=== PATIENT | male | born 1955 | race Caucasian/White ===

== ENCOUNTER → 2016-08-09 | Outpatient (CLI) | payer OTHER ==
--- NOTE | 2016-08-09 12:16 | KCIC ---
PROCEDURE MRI of the lumbar spine without contrast 08/09/2016 HISTORY Low back pain which radiates down the left leg. Left foot numbness. TECHNIQUE Unenhanced T1 weighted and T2 weighted sagittal and axial and inversion recovery sagittal images of the lumbar spine were obtained. FINDINGS Mild lateral curvature of the lumbar spine is seen convex to the left. Degenerative signal changes and loss of height are seen involving the L4-5 and L5-S1 discs. Degenerative signal changes are seen within the marrow surrounding these discs. Degenerative signal changes are seen involving the L2-3 and L3-4 discs. The conus medullaris is normal in morphology, position, and signal characteristics. At the L1-2 and L2-3 disc spaces there are minimal to mild generalized disc bulges. Degenerative changes are seen involving the facet joints bilaterally. These findings do not result in significant central spinal canal or neural foraminal stenosis. At the L3-4 disc space there is a mild generalized disc bulge. Degenerative changes are seen involving the facet joints bilaterally. There is mild ligamentum flavum hypertrophy bilaterally. There is prominence of the posterior epidural fat. These findings when combined result in very mild central spinal canal stenosis. No neural foraminal stenosis is seen. At the L4-5 disc space there is a moderate generalized disc bulge. Degenerative changes are seen involving the facet joints bilaterally. There is mild to moderate ligamentum flavum hypertrophy bilaterally. There is prominence of the posterior epidural fat. These findings when combined result in mild to moderate central spinal canal stenosis. Mild to moderate bilateral neural foraminal stenosis is seen. At the L5-S1 disc space there is a moderate generalized disc bulge. This is eccentric to the left. Degenerative changes are seen involving the facet joints, left greater than right. There is mild ligamentum flavum hypertrophy bilaterally. Superimposed on the disc bulge is a focal central disc protrusion. This measures 3 millimeters in AP diameter. These findings when combined do not result in significant central spinal canal stenosis. Moderate to severe left neural foraminal stenosis is seen. The right neural foramina is patent. IMPRESSION The changes of degenerative disc disease are seen throughout the lumbar spine. These findings result in very mild central spinal canal stenosis at L3-4 and mild to moderate central spinal canal stenosis at L4-5. Mild to moderate bilateral neural foraminal stenosis is seen at L4-5. Moderate to severe left neural foraminal stenosis is seen at L5-S1. Electronically signed by: James Rubio MD (Aug 09, 2016 12:14:45)
== END | disposition home or self-care (01) ==
LOC: KCIC MRI 07:58
PROVIDERS: ATTEND Family Medicine
DX: M54.32 Sciatica, left side (principal); M48.07 Spinal stenosis, lumbosacral region
CPT/HCPCS: 72148

== ENCOUNTER → 2016-09-20 | Outpatient (CLI) | payer OTHER ==
[~2016-09-20] MED LIST: BENA1TAB6 PO; CRAN500C6 PO; GLUC1CAP48 PO; IOHEXOL 180 MG/ML 10 ML VIAL. ONE; LEVO150T5 PO; MELO-150 PO; MULT-658 PO; OMEP20CA9 PO; SAW450CA2 PO; TESTIN; mega red; methylPREDNISolone ACETATE 40 MG/ML VIAL. ONE; methylPREDNISolone ACETATE 80 MG/ML VIAL. ONE; tumeric
--- NOTE | 2016-09-20 22:49 | PAIN ---
DATE OF SERVICE: 09/20/2016 CHIEF COMPLAINT: Low back and left lower extremity pain. HISTORY OF PRESENT ILLNESS: This is a 60-year-old male who presents with history of pain for about a year, increasing in the low back, left lower extremity, never really got better with normal activities. He was doing some stretching exercises and strengthening and resting his back. No specific injury or accident that he is aware about a year ago, but the pain never got better as it has in the past when he has had some back pain. The patient reports it is now in the low back radiating to the posterior gluteus, posterior thigh, posterior knee, posterior calf into the foot involving the lateral aspect of the foot and the sole of the foot, worse with standing, walking, changing positions to say intermittent in intensity, but always present, changes during the day, worse with activity, numbness, radiating, also aching in quality and it gets worse in the evening after he is up on his feet, feels better with walking on an elliptical machine or treadmill for a short period of time after about 15 minutes, pain begins to increase in his back and leg. His leg does feel like it fatigues more easily than the right one, but has no actual motor loss or deficits in the lower extremity. The patient did have an MRI scan of the lumbar spine showing changes of degenerative disk disease throughout the lumbar spine, very mild central spinal canal stenosis at L3-L4, mild to moderate canal stenosis centrally at L4-L5 and moderate bilateral neural foraminal stenosis at L4-L5 with moderate to severe left neural foraminal stenosis at L5-S1 with a superimposed disk bulge with focal central disk protrusion at L5-S1 on the left. The patient reports disability rate from 0-10, 10 being the worst, a 2-3 with family and home responsibilities, 3-4 with recreation and social activity, 4-5 with occupation, 1 with sexual behavior and 0 with self care and 0 with life support activities. The patient has been doing exercises on his own, he has not had any form of physical therapy training. At this time, he is also taking aspirin, ibuprofen, and Meloxicam, which helps, but only to a mild extent with the pain. Again, no symptoms on the right lower extremity, no loss of motor function. PAST MEDICAL HISTORY: Significant for hypertension, hypothyroidism, arthritis, gastroesophageal reflux, hypogonadism. PREVIOUS SURGERY: Tonsillectomy and carpal tunnel repair. CURRENT MEDICATIONS: Include Meloxicam, [place], glucosamine, cranberry extract, multivitamins, levothyroxine, omeprazole and benazepril. ALLERGIES: The patient has no known drug allergies. FAMILY HISTORY: Significant for no major medical problems or conditions he is aware of. SOCIAL HISTORY: The patient does not smoke. Drinks maybe 2-3 beer beverages once a week at the most, is , lives with his spouse, lives locally in [place], [place], is a retired special police officer. REVIEW OF SYSTEMS: The patient's review of systems is positive for those items mentioned in history of present illness. All systems reviewed and otherwise negative. It is complete, full and well documented on the patient's chart. PHYSICAL EXAMINATION: VITAL SIGNS: Today, blood pressure is 163/91, pulse is 67, respirations 20, temperature is 97.8 degrees Fahrenheit, height is 5 feet 10 inches, weighs 241 pounds. GENERAL: The patient is awake, alert, oriented, appropriate, very pleasant demeanor. HEENT: Head shows normocephalic, atraumatic. Extraocular movements intact, symmetrical. Oral cavity, mucous membranes are moist and pink. Dentition is intact. NECK: Shows anterior throat supple without palpable lymphadenopathy noted. Swallow reflex is symmetrical. CHEST: Shows normal on inspection. Breath sounds clear to auscultation bilaterally. HEART: Shows S1 and S2 clear. ABDOMEN: Soft, nontender, nondistended. No palpable organomegaly. No rebound or guarding demonstrated. BACK: The patient's back shows spine grossly in the midline, normal-appearing cervical lordotic curvature, thoracic kyphotic curvature, and lumbar lordotic curvature. No previous bruises, lesions, rashes or scars are noted. Lumbar paraspinous muscle shows symmetrical inspection with palpation shows some moderate tenderness only in the low lumbar distribution bilaterally, but only diffusely without radiation, without trigger points. No tenderness over the sacrum or sacroiliac regions. The patient shows good rotation and motion of the lumbar spine, both laterally greater than 10 degrees ____ extension greater than 10 degrees, forward flexion at 45 degrees without significant pain reported. LOWER EXTREMITIES: Show deep tendon reflexes at 2+ in the patellar, 1+ tendo calcaneus tendons. Motor exam is strong with 5/5 dorsiflexion, extension, quadriceps and hamstring flexion and is symmetrical as well. Peripheral pulses are 2+ posterior tibial and dorsalis pedis pulses. No peripheral edema is noted. No clubbing, no cyanosis. Lower extremities are warm and dry to touch, equal in color and appearance. The patient has a mild positive straight leg raise at about 40-45 degrees on the left side only. There is decreased with knee flexion, right side is negative. Gaenslen's and Meet's maneuvers are negative for reproduction of pain bilaterally as well. The patient is able to stand, stand on his toes without difficulty or loss of balance, is walking with a normal appearing gait without any assistive devices such as canes or walkers to ambulate. IMPRESSION: 1. This is a 60-year-old male with approximately 1 year history of increasing low back pain radiating to left lower extremity is noted in a radicular fashion. 2. MRI scan as noted. 3. Hypertension. 4. Arthritis. PLAN: Options were discussed with the patient including conservative medical management, physical therapy, and interventional technique. He would like to pursue interventional techniques. We discussed a lumbar epidural steroid injection using description as well as anatomical models to describe the procedure. Risks were then discussed including, but not limited to bleeding, infection, possibility of epidural hematoma and subsequent neurologic compromise, dural puncture, headaches, spinal cord and/or nerve damage, side effects of steroid medication and poor results regarding pain control. The patient understands and wished to proceed. The patient will return to clinic in approximately 2 weeks for followup. He was counseled on return appointment, activity levels and side effects to be aware of. DIAGNOSES: Lumbar radiculopathy with lumbar degenerative disk disease. PROCEDURES: Lumbar epidural steroid injection, translaminar approach at the L5-S1 level using C-arm fluoroscopic guidance under sterile prep and drape using local anesthetic. MEDICATION INJECTED: 120 mg Depo-Medrol plus 10 mL of preservative-free normal saline and 2 mL of Isovue for contrast. CONDITION AT DISCHARGE: Stable. The patient tolerated procedure well, had no complications. LENA WESLEY MD DR: SENDY/sunny JOB#: [id number] / [id number] ecc KATTY YUSUF MD
== END | disposition home or self-care (01) ==
LOC: PNCL 07:39
PROVIDERS: ATTEND Anesthesiology
DX: M51.16 Intervertebral disc disorders with radiculopathy, lumbar region (principal); I10 Essential (primary) hypertension; E03.9 Hypothyroidism, unspecified; M19.90 Unspecified osteoarthritis, unspecified site; K21.9 Gastro-esophageal reflux disease without esophagitis; E23.0 Hypopituitarism; Z72.89 Other problems related to lifestyle
CPT/HCPCS: 62323; J1030; J1040

== ENCOUNTER → 2016-10-04 | Outpatient (CLI) | payer OTHER ==
--- NOTE | 2016-10-04 13:03 | PAIN ---
DATE OF SERVICE: 10/04/2016 PROGRESS NOTE FOR PAIN CLINIC DIAGNOSES: Lumbar radiculopathy with lumbar degenerative disk disease. HISTORY OF PRESENT ILLNESS: The patient is a 60-year-old male, who returns for followup status post lumbar epidural steroid injection x 1. The patient reports about 50% improvement overall in low back and left lower extremity. The patient reports still some significant pain there, but much improved, has been increasing activity with greater ease and comfort, has been performed daily activities is much better tolerability. The patient reports his pain anywhere from 0-3 on a scale of 10 is the worst. The patient reports aching and tight radiating pain in the left leg, as well as some tightness in the calf, but significantly diminished from previous. The patient reports sleeping better at night, does not awaken him from sleep. No new motor or sensory deficits or other bowel or bladder incontinence or other complaints. PHYSICAL EXAMINATION: VITAL SIGNS: The patient's blood pressure 143/78, pulse 66, respirations are 16, temperature 98.4 degrees Fahrenheit. Height is 5 feet 10 inches, weight is 241 pounds. GENERAL: The patient is awake, alert, oriented, appropriate, very pleasant demeanor. HEENT: Shows normocephalic, atraumatic. Extraocular movements are intact, symmetrical. Oral cavity, mucous membranes are moist and pink. Dentition is intact. NECK: Shows anterior throat supple without palpable lymphadenopathy noted. Swallow reflex is symmetrical. CHEST: Shows normal on inspection. Breath sounds clear to auscultation bilaterally. HEART: Shows S1 and S2 clear. ABDOMEN: Soft, nontender, nondistended. No palpable organomegaly is noted. No rebound or guarding demonstrated. BACK: Shows spine grossly midline. Lumbar paraspinous shows symmetrical on inspection with palpation shows only very mild tenderness with palpation in the low lumbar distribution bilaterally, but is symmetrical and normal muscle girth. No atrophy, hypertrophy, no radiation of pain, no tenderness over the sacrum or sacroiliac regions. EXTREMITIES: Lower extremities show deep tendon reflexes 2+ in the patellar, 1+ tendo-calcaneus tendons are equal. Motor exam is strong with 5/5 dorsiflexion, extension, quadriceps and hamstring flexion. Options were discussed with the patient. The patient's old chart was reviewed as his current medication regimen updated. Current review of systems updated today as well. We will proceed with a second lumbar epidural steroid injection today with fluoroscopic guidance. Risks were again discussed including, but not limited to bleeding, infection, possibility of epidural hematoma, subsequent neurologic compromise, dural punctures, headaches, spinal cord and/or nerve damage, side effects of steroid medication and poor results regarding pain control. The patient understands and wishes to proceed. The patient will return to clinic in approximately 2 weeks for followup, was counseled as to return appointment and activity level and side effects to be aware of. DIAGNOSIS: Lumbar radiculopathy with lumbar degenerative disk disease. PROCEDURE: Lumbar epidural steroid injection in translaminar approach at the L5-S1 level using C-arm fluoroscopic guidance under sterile prep and drape using local anesthetic. MEDICATION INJECTED: Depo-Medrol 120 mg plus 10 mL of preservative-free normal saline and 2 mL of Isovue for contrast. CONDITION AT DISCHARGE: Stable. The patient tolerated procedure well, had no complications. LENA WESLEY MD DR: SENDY/sunny JOB#: [id number] / [id number]
== END | disposition home or self-care (01) ==
LOC: PNCL 08:33
PROVIDERS: ATTEND Anesthesiology
DX: M51.16 Intervertebral disc disorders with radiculopathy, lumbar region (principal)
CPT/HCPCS: 62323; J1030; J1040

== ENCOUNTER → 2016-10-25 | Outpatient (CLI) | payer OTHER ==
[~2016-10-25] MED LIST changes: -MELO-150 PO; +MELO15TA23 PO
--- NOTE | 2016-10-25 11:43 | PAIN ---
DATE OF SERVICE: 10/25/2016 PROGRESS NOTE FOR PAIN CLINIC DIAGNOSES: Lumbar radiculopathy with lumbar degenerative disk disease. HISTORY OF PRESENT ILLNESS: The patient is a 60-year-old male who returns for followup status post lumbar epidural steroid injections x 2. The patient reports about 90% or better improvement with the pain in his low back and left leg. The patient reports he has been very pleased. He has been increasing his activity with greater ease and comfort. The patient's pain is a 3 on a scale of 10 at its worst, worse with standing, walking, sleeping well at night and increasing activity with greater ease and comfort, reports he is sleeping well. Has no new motor or sensory deficits, no new complaints. He is very pleased with his progress. The patient reports no new changes. No new deficits or other complaints. PHYSICAL EXAMINATION: VITAL SIGNS: The patient's blood pressure is 155/86, pulse 67, respirations 18, temperature 98.2 degrees Fahrenheit, height is 5 feet 9 inches, is 237 pounds. GENERAL: The patient is awake, alert, oriented, appropriate, very pleasant demeanor. HEENT: Head shows normocephalic, atraumatic. Extraocular movements are intact and symmetrical. Oral cavity shows mucous membranes moist and pink. Dentition is intact. NECK: Shows anterior throat supple. CHEST: Shows breath sounds clear to auscultation bilaterally. HEART: Shows S1 and S2 clear. ABDOMEN: Soft, nontender, nondistended. No palpable organomegaly is noted. No rebound or guarding demonstrated. BACK: Shows spine grossly in the midline. Lumbar paraspinous muscle shows some mild tenderness to palpation, but without atrophy, hypertrophy and without asymmetry. EXTREMITIES: The patient's lower extremities showed deep tendon reflexes at 2+ in the patellar, 1+ tendo calcaneus tendons. Motor exam is strong with 5/5 dorsiflexion, extension, quadriceps and hamstring flexion and is symmetrical as well. Options were discussed with the patient. The patient's old chart was reviewed as his current medication regimen updated. Current review of systems updated today as well and we will proceed with a third in the series of lumbar epidural steroid injection using the C-arm fluoroscopic guidance. Risks were again discussed including, but not limited to, bleeding, infection, possibility of epidural hematoma and subsequent neurologic compromise, dural puncture, headaches, spinal cord and/or nerve damage, side effects of steroid medications and poor results regarding pain control. The patient understands and wishes to proceed. The patient will return to clinic in approximately 2 weeks for followup, was counseled on return appointment, activity level and side effects to be aware of. DIAGNOSES: Lumbar radiculopathy with lumbar degenerative disk disease. PROCEDURE: Lumbar epidural steroid injection in translaminar approach at L5-S1 level using C-arm fluoroscopic guidance under sterile prep and drape using local anesthetic. MEDICATIONS INJECTED: Depo-Medrol 120 mg plus 10 mL of preservative-free normal saline and 2 mL of Isovue for contrast. CONDITION AT DISCHARGE: Stable. The patient tolerated procedure well, had no complications. LENA WESLEY MD DR: SENDY/sunny JOB#: [id number] / [id number]
== END | disposition home or self-care (01) ==
LOC: PNCL 07:45
PROVIDERS: ATTEND Anesthesiology
DX: M51.16 Intervertebral disc disorders with radiculopathy, lumbar region (principal)
CPT/HCPCS: 62323; J1030; J1040

== ENCOUNTER → 2017-03-27 | Outpatient (CLI) | payer OTHER ==
[~2017-03-27] MED LIST changes: -IOHEXOL 180 MG/ML 10 ML VIAL. ONE; -methylPREDNISolone ACETATE 40 MG/ML VIAL. ONE; -methylPREDNISolone ACETATE 80 MG/ML VIAL. ONE
--- NOTE | 2017-03-27 20:35 | PAIN ---
DATE OF SERVICE: 03/27/2017 PROGRESS NOTE FOR PAIN CLINIC DIAGNOSES: Lumbar radiculopathy with lumbar degenerative disk disease. HISTORY OF PRESENT ILLNESS: The patient is a 61-year-old male who returns for followup status post lumbar epidural steroid injections, last seen in October of this year. The patient did very well after his third injection with about 90% improvement initially, weaning down to about 50% improvement overall and is still improved by about 50% to this day. The patient reports pain has been returning though, increasing in his low back and left lower extremity, mostly in the posterior gluteus, posterior thigh, posterior calf, lateral calf on the left side only. The patient reports it is worse with standing, walking and changing positions; better with lying down or sitting down; sleeps well at night, does not awaken him from sleep. The patient reports it is worse with sitting for more than about an hour or riding the car for prolonged periods but much worse with standing and walking. When he sits down, the pain is actually better initially but then once he gets back up, it starts all over. The patient reports no radiation to the right lower extremity. The patient reports the pain is aching and tight, throbbing and shooting and at times rates at 8 on a scale of 10 at its worst, 5 on average and 2 at its least and is 2 today. The patient reports no new motor or sensory deficits and no new bowel or bladder incontinence or other complaints. PHYSICAL EXAMINATION: VITAL SIGNS: Today, the patient's blood pressure 161/79, pulse 79, respirations are 18, temperature 97.8 degrees Fahrenheit, height is 5 feet 10 inches and weight is 246 pounds. GENERAL: The patient is awake, alert, oriented, appropriate and very pleasant demeanor. HEENT: Shows normocephalic and atraumatic. Extraocular movements are intact and symmetrical. Oral cavity: Mucous membranes moist and pink. Dentition is intact. NECK: Shows anterior throat supple without palpable lymphadenopathy noted. Swallow reflex is symmetrical. CHEST: Shows normal on inspection. Breath sounds clear to auscultation bilaterally. HEART: Shows S1 and S2 clear. No murmurs auscultated. ABDOMEN: Obese, soft, nontender and nondistended. No palpable organomegaly is noted. BACK: Shows spine grossly in the midline. Normal appearing thoracic kyphosis and lumbar lordotic curvature. No previous bruises, lesions, rashes or scars are noted. Lumbar paraspinous musculature is symmetrical on inspection with palpation shows some [id number] tenderness in the low lumbar distribution only, but only diffusely without radiation. The patient shows no tenderness over the sacrum or sacroiliac regions over the spinous processes sows good rotational motion both laterally as well as extension and flexion without exacerbation of pain. LOWER EXTREMITIES: Show deep tendon reflexes 2+ in the patellar, 1+ tendo-calcaneus tendons, are equal. Motor exam is strong with 5/5 dorsiflexion, extension, quadriceps and hamstring flexion. Peripheral pulses are 1+ posterior tibial and dorsalis pedis pulses. No peripheral edema is noted. The patient shows mildly positive straight leg raise on the left side only at about 40 degrees and it is decreased with knee flexion and right side is negative. Gaenslen's and Meet's maneuvers are negative bilaterally. Options were discussed with the patient and the patient's old chart was reviewed as well as his current medication regimen updated. Current review of systems updated today as well. We will preauthorize the patient for lumbar epidural steroid injections. He has done very well with these in the past with increasing radicular pain in the left lower extremity and L5-S1 dermatomal distribution with MRI scan showing diffuse disk bulge, eccentric to the left at the L5-S1 level with a focal central disk protrusion at that level. The patient will continue to exercise and do stretching and strengthening as he has been doing as well as walking daily. We will wait for preauthorization and have him return for lumbar epidural steroid injection at that time. LENA WESLEY MD DR: SENDY/sunny JOB#: [id number] / [id number]
== END | disposition home or self-care (01) ==
LOC: PNCL 07:37
PROVIDERS: ATTEND Anesthesiology
DX: M51.16 Intervertebral disc disorders with radiculopathy, lumbar region (principal); M79.605 Pain in left leg
CPT/HCPCS: 99212

== ENCOUNTER → 2017-04-16 | Outpatient (CLI) | payer OTHER ==
[~2017-04-16] MED LIST changes: +IOHEXOL 180 MG/ML 10 ML VIAL. ONE; +methylPREDNISolone ACETATE 40 MG/ML VIAL. ONE; +methylPREDNISolone ACETATE 80 MG/ML VIAL. ONE
--- NOTE | 2017-04-16 18:19 | PAIN ---
DATE OF SERVICE: 04/16/2017 DIAGNOSES: Lumbar radiculopathy with lumbar degenerative disk disease. HISTORY OF PRESENT ILLNESS: The patient is a 61-year-old male who returns for followup status post evaluation and preauthorization for lumbar epidural steroid injections. The patient has achieved this now, still significant pain in low back, left lower extremity radiating to posterior hip, posterior thigh, gluteus, into the posterior calf and the lateral calf on the left side only. The patient reports it is a 6-7 on a scale of 10 at its worse, 5-6 on average and 2 at its least, is a 5 today. The patient reports it is aching, tight, radiating, sharp, shooting pain, can be cramping; worse with standing, walking, change in positions; better with sitting or lying down. The patient reports it does not awaken from sleep. He feels much better lying down, sleeps about 8 hours a night without difficulty. The patient reports no new motor or sensory deficits, no new bowel or bladder incontinence or other complaints. PHYSICAL EXAMINATION: VITAL SIGNS: Today, the patient's blood pressure 144/83, pulse 56, respirations 18, temperature 97.8 degrees Fahrenheit. Height is 5 feet 10 inches, weighs 243 pounds. GENERAL: The patient is awake, alert, oriented, appropriate, very pleasant demeanor. HEENT: Head shows normocephalic, atraumatic. Extraocular movements are intact, symmetrical. Oral cavity: Mucous membranes moist and pink. Dentition is intact. NECK: Shows anterior throat supple without palpable lymphadenopathy noted. Swallow reflex is symmetrical. CHEST: Shows normal on inspection. Breath sounds clear to auscultation bilaterally. HEART: Shows S1, S2 clear. ABDOMEN: Soft, nontender, nondistended. No palpable organomegaly is noted. No rebound or guarding demonstrated. BACK: Shows spine grossly in midline. Lumbar paraspinous musculature shows symmetrical on inspection on palpation shows some moderate tenderness in the paraspinous musculature bilaterally, but only diffusely in the low lumbar distribution without radiation, without trigger points. Neck shows full rotational motion of lumbar spine, both laterally greater than 10 degrees right and left well as extension greater than 10 degrees, forward flexion 45 degrees without difficulty or pain reported. EXTREMITIES: Lower extremities show deep tendon reflexes 2+ in the patellar, 1+ tendo calcaneus tendons. Motor exam is strong with 5/5 dorsiflexion, extension, quadriceps and hamstring flexion and equal bilaterally. Peripheral pulses are 1+ posterior tibial. No peripheral edema is noted. No clubbing, no cyanosis. Options were discussed with the patient. The patient's old chart was reviewed as his current regimen and updated. Current review of systems is updated today as well. We will proceed with a lumbar epidural steroid injection today with fluoroscopic guidance. Risks were again discussed including, but not limited to bleeding, infection, possibility of epidural hematoma, subsequent neurologic compromise, dural puncture. headaches, spinal cord and/or nerve damage, side effects of steroid medication and poor results regarding pain control. The patient understands and wished to proceed. The patient will return to clinic in approximately 2 weeks for followup, was counseled on return appointment, activity level and side effects to be aware of. DIAGNOSES: Lumbar radiculopathy with lumbar degenerative disk disease. PROCEDURES: Lumbar epidural steroid injection, translaminar approach L5-S1 level using C-arm fluoroscopic guidance under sterile prep and drape using local anesthetic. MEDICATION INJECTED: A total of 120 mg Depo-Medrol plus 10 mL preservative-free normal saline and 2 mL of Isovue for contrast. CONDITION AT DISCHARGE: Stable. The patient tolerated procedure well, had no complications. LENA WESLEY MD DR: SENDY/sunny JOB#: [id number] / [id number]
== END ==
LOC: PNCL 08:35
PROVIDERS: ATTEND Anesthesiology
DX: M51.16 Intervertebral disc disorders with radiculopathy, lumbar region (principal)
CPT/HCPCS: 62323; J1030; J1040

== ENCOUNTER → 2017-04-30 | Outpatient (CLI) | payer OTHER ==
[~2017-04-30] MED LIST changes: -SAW450CA2 PO; +SAW450CA7 PO
--- NOTE | 2017-04-30 11:23 | PAIN ---
DATE OF SERVICE: 04/30/2017 PROGRESS NOTE FOR PAIN CLINIC DIAGNOSES: Lumbar radiculopathy with lumbar degenerative disk disease. HISTORY OF PRESENT ILLNESS: The patient is a 61-year-old male who returns for followup status post lumbar epidural steroid injection x 1. The patient reports about 95% improvement in his low back and left lower extremity pain. The patient reports still some pain in the low back radiating to posterior gluteus and posterior thigh into the calf but much improved as what it was. He has been increasing activity with greater ease and comfort and sleeping better at night and was then becoming much more active with much less pain. The patient reports the pain level is still there but is a 2-3 at its worst, 1 on average and 0 at least and is 1 today. The patient reports it is radiating, aching and dull but only off and on, not constant as it was previously. The patient is very pleased with his progress thus far, reports no new motor or sensory deficits and no new bowel or bladder incontinence or other complaints. PHYSICAL EXAMINATION: VITAL SIGNS: Today, the patient's blood pressure 140/91, pulse 60, respirations 18, temperature is 97.8 degrees Fahrenheit, height is 5 feet 10 inches and weight is 238 pounds. GENERAL: The patient is awake, alert, oriented, appropriate and very pleasant demeanor. HEENT: Head shows normocephalic and atraumatic. Extraocular muscles are intact and symmetrical. Oral cavity: Mucous membranes moist and pink. Dentition is intact. NECK: Shows anterior throat supple without palpable lymphadenopathy noted. Swallow reflex symmetrical. CHEST: Shows normal with inspection. Breath sounds are clear to auscultation bilaterally. HEART: Shows S1 and S2 clear. No murmurs auscultated. ABDOMEN: Soft, nontender and nondistended. No palpable organomegaly noted. No rebound or guarding demonstrated. BACK: Shows spine grossly in the midline. Lumbar paraspinous musculature shows moderate tenderness with palpation but only diffusely in the lumbar distribution. Lumbar paraspinous musculature is symmetrical on inspection. No previous bruises, lesions, rashes or scars are noted. The patient's back shows good rotational motion both laterally greater than 10 degrees right and left as well as extension greater than 10 degrees, forward flexion at 45 degrees without difficulty. EXTREMITIES: Lower extremities show deep tendon reflexes at 2+ at the patellar and 1+ tendo-calcaneus tendons. Motor exam is strong with 5/5 dorsiflexion, extension, quadriceps and hamstring flexion. Peripheral pulses are 1+ posterior tibial. No peripheral edema is noted. Options were discussed with the patient, the patient's old chart was reviewed as well as his current medication regimen updated. Current review of systems updated today as well and we will proceed with lumbar epidural steroid injections, the second in this series with fluoroscopic guidance. Risks were again discussed including, but not limited to bleeding, infection, possibility of epidural hematoma and subsequent neurological compromise, dural puncture, headaches, spinal cord and/or nerve damage, side effects of steroid medication and poor results regarding pain control. The patient understands and wished to proceed. The patient to return to clinic in approximately 2 weeks for followup. He was counseled to return appointment, activity level and side effects to be aware of. DIAGNOSIS: Lumbar radiculopathy with lumbar degenerative disk disease. PROCEDURE: Lumbar epidural steroid injection, translaminar approach, L5-S1 level using C-arm fluoroscopic guidance under sterile prep and drape using local anesthetic. MEDICATION INJECTED: A total of 120 mg Depo-Medrol plus 10 mL of preservative-free normal saline and 2 mL of Isovue for contrast. CONDITION AT DISCHARGE: Stable. The patient tolerated the procedure well, had no complications. LENA WESLEY MD DR: SENDY/sunny JOB#: [id number] / [id number]
== END | disposition home or self-care (01) ==
LOC: PNCL 08:24
PROVIDERS: ATTEND Anesthesiology
DX: M51.16 Intervertebral disc disorders with radiculopathy, lumbar region (principal)
CPT/HCPCS: 62323; J1030; J1040

== ENCOUNTER → 2017-07-03 | Outpatient (CLI) | payer OTHER ==
[~2017-07-03] MED LIST changes: -BENA1TAB6 PO; -CRAN500C6 PO; -GLUC1CAP48 PO; +IOHEXOL 180 MG/ML 10 ML VIAL.; -IOHEXOL 180 MG/ML 10 ML VIAL. ONE; -LEVO150T5 PO; -MELO15TA23 PO; -MULT-658 PO; -OMEP20CA9 PO; -SAW450CA7 PO; -TESTIN; -mega red; +methylPREDNISolone ACETATE 40 MG/ML VIAL.; -methylPREDNISolone ACETATE 40 MG/ML VIAL. ONE; +methylPREDNISolone ACETATE 80 MG/ML VIAL.; -methylPREDNISolone ACETATE 80 MG/ML VIAL. ONE; -tumeric
== END | disposition home or self-care (01) ==
LOC: PNCL 07:29
DX: M51.16 Intervertebral disc disorders with radiculopathy, lumbar region (principal)
CPT/HCPCS: 62323; J1030; J1040; Q9965

== ENCOUNTER → 2017-07-31 | Outpatient (CLI) | payer OTHER | LOC: PNCL 07:43 | DX: M51.16 Intervertebral disc disorders with radiculopathy, lumbar region (principal); Z79.899 Other long term (current) drug therapy | CPT/HCPCS: 99212 ==

== ENCOUNTER → 2017-08-14 | Outpatient (CLI) | payer OTHER | END | disposition home or self-care (01) | LOC: PNCL 07:29 | DX: M51.16 Intervertebral disc disorders with radiculopathy, lumbar region (principal) | CPT/HCPCS: 62323; J1030; J1040; Q9965 ==

== ENCOUNTER → 2017-08-28 | Outpatient (CLI) | payer OTHER | END | disposition home or self-care (01) | LOC: PNCL 07:58 | DX: M51.16 Intervertebral disc disorders with radiculopathy, lumbar region (principal) | CPT/HCPCS: 99212 ==

== ENCOUNTER → 2017-09-11 | Outpatient (CLI) | payer OTHER | END | disposition home or self-care (01) | LOC: PNCL 08:01 | DX: M51.16 Intervertebral disc disorders with radiculopathy, lumbar region (principal) | CPT/HCPCS: 62323; J1030; J1040; Q9965 ==

== ENCOUNTER → 2017-11-06 | Outpatient (CLI) | payer OTHER | END | disposition home or self-care (01) | LOC: KCIC MRI 09:07 | DX: M51.37 Other intervertebral disc degeneration, lumbosacral region (principal); M48.07 Spinal stenosis, lumbosacral region; M25.78 Osteophyte, vertebrae; I10 Essential (primary) hypertension; E03.9 Hypothyroidism, unspecified | CPT/HCPCS: 72148 ==

== ENCOUNTER → 2017-12-30 | Outpatient (CLI) | payer OTHER ==
[~2017-12-30] MED LIST changes: +BENA1TAB6 PO; +CRAN500C6 PO; +GLUC1CAP48 PO; +HYDR12.53 PO; -IOHEXOL 180 MG/ML 10 ML VIAL.; +LEVO150T5 PO; +MELO15TA23 PO; +MULT-658 PO; +OMEP20CA9 PO; +SAW450CA7 PO; +TESTIN; +mega red; -methylPREDNISolone ACETATE 40 MG/ML VIAL.; -methylPREDNISolone ACETATE 80 MG/ML VIAL.; +tumeric
--- NOTE | 2017-12-31 06:40 | PDOC2 ---
Sleep Study Interpretation Patient Demographics: Date of Study: Dec 30, 2017 Primary Physician: KATTY YUSUF Referring Physician: Abhay OCHOA Type of Study: Split Night ESS: 12 BMI: 36 Sleep Study Procedure: This sleep study included recording and monitoring of EEG/EOG/EMG/EKG, respiratory effort and flow, snoring, pulse oximetry and position. Video recordings were obtained as needed. A qualified chief ultrasound technologist continuously monitored the patient throughout the night. Data was digitally stores and tabulated. Sleep staging and respiratory events were scored manually using AASM standards. Patient History: Pre-Study Sleep Assessment: Sleep Paralysis, Snoring, Observed Apnea Sleep Architecture Summary: Time In Bed Minutes: 432 TST Minutes: 377 Sleep Efficiency %: 87 Sleep Latency: Sleep Latency Minutes: 4 Distribution: N1 Min: 42 N1 %: 11 N2 Min: 271 N2 %: 72 N3 Min: 0 N3 %: 0 Stage REM Minutes: 64 Stage REM %: 17 REM Latency Minutes: 258 Baseline Respiratory Indexes: Respiratory Indexes: Diagnostic Overall AHI Hr: 44 Mins Supine: 114 Supine AHI Hr: 56 Mins Lateral: 32 AHI Lateral: 0 REM AHI Hr: 0 #OA: 0 # Hypopnea: 104 # MA: 2 # CA: 0 Baseline Oxygenation Summary: Oxygenation: Diagnostic Average Oxygen Saturation: 92 Min Oxygen Saturation: 86 Percent Below 88%: 9 Therapeutic PAP Resp Indexes: AHI: 1 Mins Supine: 66 AHI Supine: 0 Mins Lateral: 59 AHI Lateral: 1 AHI in REM: 2 #OA: 0 #Hypopnea: 0 #MA: 0 #CA: 1 Therapeutic PAP O2 Sat Indexes Minimum O2 Saturation/%: 93 Periodic Limb Movements: PLM INDEX =: 20 PLM INDEX with arousals =: 1 EKG: EKG: NSR Mean Heart Rate/Minute: 59 Treatment Information: CPAP was started at [5] cm H20 and increased gradually to []11 cm H20 per protocol. Supine sleep recorded at final pressure REM sleep recorded at final pressure There was an improvement in respiratory events with positive pressure treatment but an optimum pressure was not achieved on this study. AHI on optimum pressure was [1] hr Interface used [Respironics Medium Dreamwear nasal pillows] Episodes of desaturation were controlled with PAP therapy Impression: Sleep study is consistent with a SEVERE sleep apnea. Mild PLMS seen. Nocturnal hypoxia due to RICHARD, resolved with CPAP. Recommendations: CPAP at 11 centimeters H2O should be used on a nightly basis Patient should be followed up in 4-6 weeks to assess compliance with positive pressure therapy with review of smart card data to assess for clinical improvement. Weight loss is strongly advised. Cautioned regarding driving and operating dangerous machinery until symptoms of sleep apnea have resolved with above recommendations. Avoid BATCH WEIGHER depressants. PLMS does not need to be treated unless patient has symptoms of restless legs during the day. * I have reviewed the polysomnographic senior database administrator on this patient and agreed with the information entered. JAI MACK Dec 31, 2017 06:40 GURDEEP OCHOA MD Dec 31, 2017 14:24
== END | disposition home or self-care (01) ==
LOC: SLPLAB 18:31
PROVIDERS: ATTEND Internal Medicine Critical Care Medicine
DX: G47.33 Obstructive sleep apnea (adult) (pediatric) (principal); I10 Essential (primary) hypertension; E03.9 Hypothyroidism, unspecified
CPT/HCPCS: 95810

== ENCOUNTER → 2018-03-03 | Outpatient (CLI) | payer OTHER ==
[~2018-03-03] MED LIST changes: +ALLO300T PO; +AMLO2.5T3 PO; +BENA40TA3 PO; +COLC0.6T34 PO; +DOCU-109 PO; +HYDR-971 PO; +METH-38 PO; +OMEP20TA8 PO
[2018-03-03 16:08] LABS: BASO # 0.1 x10^3/uL (0.0-0.2); BASO % 1 % (0-3); EOS # 0.2 x10^3/uL (0.0-0.7); EOS % 3 % (0-3); HEMATOCRIT 52.4 % (39.0-53.0); HEMOGLOBIN 18.1 g/dL (13.0-17.5); LYMPH # 1.8 x10^3/uL (1.0-4.8); LYMPH % 22 % (24-48); MEAN CORPUSCULAR HEMOGLOBIN 32 pg (25-35); MEAN CORPUSCULAR HGB CONC 35 g/dL (31-37); MEAN CORPUSCULAR VOLUME 93 fL (79-100); MONO % 12 % (0-9); NEUT % 62 % (31-73); PLATELET COUNT 256 x10^3/uL (140-400); RED BLOOD COUNT 5.61 x10^6/uL (4.30-5.70); RED CELL DISTRIBUTION WIDTH 13.5 % (11.5-14.5); WHITE BLOOD COUNT 8.1 x10^3/uL (4.0-11.0)
--- NOTE | 2018-03-03 16:14 | EKG ---
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
[2018-03-03 16:41] LABS: ALBUMIN 4.4 g/dL (3.4-5.0); ALBUMIN/GLOBULIN RATIO 1.2 (1.0-1.7); CALCIUM 10.2 mg/dL (8.5-10.1); CREATININE 1.2 mg/dL (0.7-1.3); GFR 61.6; POTASSIUM 3.9 mmol/L (3.5-5.1); TOTAL BILIRUBIN 0.5 mg/dL (0.2-1.0); TOTAL PROTEIN 8.1 g/dL (6.4-8.2)
== END | disposition home or self-care (01) ==
LOC: SURGPAT 13:49
PROVIDERS: ATTEND Neurological Surgery
DX: Z01.818 Encounter for other preprocedural examination (principal); M48.062 Spinal stenosis, lumbar region with neurogenic claudication; M51.16 Intervertebral disc disorders with radiculopathy, lumbar region
CPT/HCPCS: 36415; 80053; 85025; 87641; 93005

== ENCOUNTER → 2018-03-17 | Day surgery (SDC) | payer OTHER ==
--- NOTE | 2018-03-14 15:19 | PREOP HP ---
DATE OF SERVICE: 03/17/2018 HISTORY OF PRESENT ILLNESS: The patient is a pleasant 62-year-old who is having difficulty with low back pain and pain, which radiates into his left posterior thigh and leg. He notices that his leg and foot can feel numb and weak intermittently. The problem started about 2 years ago spontaneously. He currently rates his pain as a 2/10. If he increases his activities, the pain increases significantly. He takes meloxicam to help with pain control. He had epidural steroid injections about 4 times, which he said were helpful at first, but no longer helping with his pain. PAST MEDICAL HISTORY: Gout, headaches, hypertension and tonsillitis. PAST SURGICAL HISTORY: Tonsillectomy in 1967, bilateral carpal tunnel release in 1999. FAMILY HISTORY: Diabetes and hypertension. SOCIAL HISTORY: Retired. . Exercises daily. Denies substance abuse. Denies current tobacco use. Drinks alcohol 1-2 times per week. Drinks coffee 3-4 cups per day. ALLERGIES: No known drug allergies. CURRENT MEDICATIONS: Benazepril, amlodipine, hydrochlorothiazide, levothyroxine, colchicine, allopurinol, meloxicam, omeprazole, Centrum Silver and omega 3. REVIEW OF SYSTEMS: A 12-point review of systems was obtained and is noncontributory except for that mentioned above. PHYSICAL EXAMINATION: NEUROSURGERY EXAMINATION: GENERAL APPEARANCE: Alert, pleasant, no acute distress. HEAD: Normocephalic and atraumatic. SKIN: Warm and dry. MUSCULOSKELETAL: Lumbar paraspinal muscle bulk is normal, restricted range of motion of the lumbar spine, [id number] tenderness of lower lumbar spine with palpation, normal range of motion of the lower extremities bilaterally. EXTREMITIES: No clubbing, cyanosis or edema. NEUROLOGIC: Alert and oriented x 3, normal recent and remote memory, strength 5/5 in bilateral lower extremities, sensory is intact to light touch in bilateral lower extremities, reflexes were trace and symmetric in the lower extremities bilaterally, positive straight leg raising on the left, negative straight leg raising on the right, normal gait. IMAGING: I reviewed a lumbar MRI scan. On that study, there was disc bulging at L4-L5 along with lateral recess stenosis and epidural lipomatosis. At L5-S1 on the left, there is very severe narrowing of left L5-S1 neural foramen with contact of the exiting left L5 root. ASSESSMENT/PLAN: The patient has lateral recess stenosis and epidural lipomatosis with nerve root compression at L4-L5 as well as foraminal narrowing on the left at L5-S1. I believe that the left L5 root is being compressed in these locations. My recommendation is for the patient to consider lumbar microsurgery. I spoke about the surgery and the risks. He would like to proceed. We will make the arrangements. EKATERINA BARKLEY MD DR: SWATI/sunny JOB#: [id number] / [id number] ANNELIESE
[~2018-03-17] VITALS: Ht 177.8 cm; Wt 108.9 kg
[~2018-03-17] MED LIST changes: +BACITRACIN 50,000 UNIT in IV NORMAL SALINE 1000ML BAG 1,000 ML IRR ONE; +BUPIVAC MPF-EPI 0.5%-1:200000 30 ML VIAL. ONE; +DEXAMETHASONE SOD PHOS 20 MG/5 ML VIAL. ONE; +GELATIN SPONGE SIZE 100. ONE; +GLYCOPYRROLATE 1 MG/5 ML VIAL. ONE; +HYDROcodone/APAP 5/325MG 1 TAB TABLET ONE; +HYDROcodone/APAP 5/325MG 1 TAB TABLET PO ONE; +HYDROmorphone 2 MG/ML VIAL IV PRN; +ISOFLURANE > 120 MINUTES. IH ONE; +IV RINGERS,LACTATED 1000ML 1,000 ML IV SCH; +KETOROLAC 30 MG/ML INJ FOR OR. INJ ONE; +KETOROLAC 60 MG/2 ML INJ FOR OR. ONE; +LIDOCAINE 1% PF 2 ML VIAL. ID PRN; +MIDAZOLAM HCL/PF 2 MG/2 ML VIAL. ONE; +MORPHINE SULFATE 2 MG/ML VIAL. IV PRN; +ONDANSETRON PF 4 MG/2 ML VIAL. IV PRN; +ONDANSETRON PF 4 MG/2 ML VIAL. ONE; +PHENYLEPHRINE 10 MG/ML VIAL. ONE; +PROCHLORPERAZINE 10 MG/2 ML VIAL. IV PRN; +PROPOFOL 20 ML IV ONE; +PROPOFOL 50 ML IV ONE; +REMIFENTANIL 1 MG VIAL. IV ONE; +REMIFENTANIL 2 MG VIAL. IV ONE; +ROCURONIUM 50 MG/5 ML VIAL. ONE; +THROMBIN TOPICAL 20,000 UNIT SPRAY.SYRN KIT TP ONE; +ePHEDrine PF IN SALINE 50 MG/5 ML DISP.SYRIN IV ONE; +fentaNYL PF VIAL 100 MCG/2 ML VIAL IV PRN; +fentaNYL PF VIAL 100 MCG/2 ML VIAL ONE
--- NOTE | 2018-03-17 16:23 | DISCH ---
DISCHARGE INSTRUCTIONS Condition on Discharge Condition on Discharge: Stable Activity After Discharge Activity Instructions for Disc: Activity as tolerated, Avoid exertion Other activity instructions: no driving for a week Bathing Instructions: Shower-keep dressing dry Lifting Instructions after Dis: No heavy lifting, No pulling or pushing Diet after Discharge Additional Diet Restrictions: resume home deit Wound Incision Care Wound/Incision Care: Ice to area for comfort Other wound/incision instructi: may remove dressing in 48 hours if dry then may shower, no soaking Contacting the DRTl after DC Call your doctor for: Concerns you may have Follow-Up Follow up with: Follow up with Dr. Barkley's nurse in 2 weeks [phone] EKATERINA BARKLEY MD Mar 17, 2018 16:22
[2018-03-17 17:02] VITALS: BP 147/67
--- NOTE | 2018-03-19 16:07 | PATHOLOGY ---
[facility] Accession Number: [id number] . 01 Material submitted: . LUMBAR DECOMPRESSION AND DISC . 01 Clinician provided ICD-10: M48.062 . 01 Clinical history: . Lumbar stenosis and neurogenic claudication, herniated disc and radiculopathy . 02 Diagnosis: Segments of fibrocartilaginous, fibroadipose, and skeletal muscle tissue and small segments of bone, lumbar decompression and disc: - Degenerative changes of fibrocartilaginous tissue. (JPM:alondra; 03/19/2018) QMS/03/19/2018 . 02 Comment: There is no evidence of an acute inflammatory process or malignancy. . 02 Electronically signed: . Nate Soto MD, Pathologist NPI- [id number] . 01 Gross description: . Received in formalin labeled "Aquilino Feng, lumbar decompression and disc," are several pieces of glistening, fibrous tissue measuring 4.6 x 2.9 x 1.4 cm in aggregate dimensions, containing small fragments of possible bone. The tissue is submitted representatively in cassette A1, following decalcification. (TSD; 03/18/2018) TOB/TOB . 02 Pathologist provided ICD-10: M51.36 . 02 CPT . 272771, 203898 Specimen Comment: A courtesy copy of this report has been sent to Specimen Comment: [phone], . Specimen Comment: Report sent to / DR YUSUF Performed at: 01 [facility] [address], [place], [place] [id number] MD Nikolay Nicolas MD Phone: [phone] Performed at: 02 [facility] [address] [place], [place] [id number] MD Nate Soto MD Phone: [phone]
--- NOTE | 2018-03-25 21:45 | OP ---
DATE OF SURGERY: 03/17/2018 PREOPERATIVE DIAGNOSES: 1. Bulging lumbar disc L4-L5 left with lateral recess stenosis and epidural lipomatosis at that level. 2. Left foraminal narrowing L5-S1 with foraminal L5 nerve root compression. OPERATION PERFORMED: 1. Hemilaminotomy with decompression of dura and nerve root, left L4-L5 with removal of epidural lipomatosis and decompression of dura sac and the traversing L5 root. 2. Hemilaminotomy L5-S1 left with a medial transforaminal exposure and decompression of the left L5 root in the foramen. The operation was done with EMG monitoring, SSEP monitoring, fluoroscopy, microscopic dissection. SURGEON: Ketan Barkley M.D. ORGANIZATIONAL CONSULTANT: ALLIE Banuelos assisted with the surgery. She assisted with the microdecompression as well as the closure. OPERATIVE INDICATIONS: The patient is a pleasant 62-year-old man who developed intractable back and left leg pain, which failed to improve with epidural steroid injections. On imaging studies, he had above-mentioned findings and I recommended microsurgical decompression at this level. I spoke with him about the surgery, the risks, technique and expected postoperative course and he wished to go ahead. DESCRIPTION OF PROCEDURE: Following general endotracheal anesthesia, the patient was positioned prone on the Fernando table. Lumbar region was prepped and draped in standard fashion. ALLISON hose and A-V impulse boots were applied for DVT prophylaxis. The microscope was draped, fluoroscope was draped and brought into the field. Monitoring was established. Ancef 2 grams was given less than 1 hour prior to initiation of the surgery. Using fluoroscopic guidance, a midline incision was made extending from L4-S1. I dissected down through the subcutaneous tissue and reflected the paraspinal muscles and placed a Alto microdisc retractor. I directed my attention to L4-L5 on the left and using the high speed air drill, I burred down a generous hemilaminotomy. I then trimmed away thickened ligamentum flavum from medial to lateral and performed a very generous foraminotomy. The disc was bulging, but calcified and firm and no discectomy was warranted and I fully decompressed the entire region. I then moved down to L5-S1 and again performed a hemilaminotomy, trimmed away the thickened ligamentum flavum performing a partial foraminotomy and then I worked laterally and superiorly first to visualize the inferior aspect of the L5 root and then followed this around laterally into the foramen. There was hypertrophic bone and disc bulging, which were associated with compression of the root. I trimmed the thickened facet and opened up the foramen and as I worked, the L5 root moved inferiorly and became quite free. I irrigated copiously. There was some residual epidural lipomatosis material which I did remove as well and fully decompressed the entire region. I obtained adequate hemostasis with bipolar cautery and bone wax and then I irrigated copiously. I then closed the wound in layers with absorbable suture. The skin was closed with 4-0 subcuticular stitch. The operation went very well and the patient was taken in excellent condition to recovery room. I was quite pleased with the surgery. KETAN BARKLEY MD DR: SWATI/sunny JOB#: [id number] / [id number] ANNELIESE
== END | disposition home or self-care (01) ==
LOC: SURG 08:39
PROVIDERS: ATTEND Neurological Surgery
DX: M51.16 Intervertebral disc disorders with radiculopathy, lumbar region (principal); M48.061 Spinal stenosis, lumbar region without neurogenic claudication; M10.9 Gout, unspecified; I10 Essential (primary) hypertension; R51 Headache; J03.90 Acute tonsillitis, unspecified; Z98.890 Other specified postprocedural states; Z82.49 Family history of ischemic heart disease and other diseases of the circulatory system; Z83.3 Family history of diabetes mellitus; Z79.899 Other long term (current) drug therapy
CPT/HCPCS: 63047; 63048; 88304; 88311; 97161; A7015; J0690; J1100; J1885; J2250; J2405; J2704; J3010; J3490; J7030; J7120; 76000

== ENCOUNTER → 2020-01-19 | Outpatient (CLI) | payer OTHER ==
[2018-03-17 17:02] VITALS: BP 147/67
[~2020-01-19] MED LIST changes: -AMLO2.5T3 PO; +AMLO2.5T5 PO; +ASPI325T8 PO; -BACITRACIN 50,000 UNIT in IV NORMAL SALINE 1000ML BAG 1,000 ML IRR ONE; -BUPIVAC MPF-EPI 0.5%-1:200000 30 ML VIAL. ONE; -DEXAMETHASONE SOD PHOS 20 MG/5 ML VIAL. ONE; +FEXO60TA25 PO; -GELATIN SPONGE SIZE 100. ONE; -GLYCOPYRROLATE 1 MG/5 ML VIAL. ONE; +HYDR-3164 PO; -HYDR-971 PO; -HYDR12.53 PO; +HYDR12.575 PO; -HYDROcodone/APAP 5/325MG 1 TAB TABLET ONE; -HYDROcodone/APAP 5/325MG 1 TAB TABLET PO ONE; -HYDROmorphone 2 MG/ML VIAL IV PRN; +IOHEXOL 180 MG/ML 10 ML VIAL. ONE; -ISOFLURANE > 120 MINUTES. IH ONE; -IV RINGERS,LACTATED 1000ML 1,000 ML IV SCH; -KETOROLAC 30 MG/ML INJ FOR OR. INJ ONE; -KETOROLAC 60 MG/2 ML INJ FOR OR. ONE; -LIDOCAINE 1% PF 2 ML VIAL. ID PRN; -MIDAZOLAM HCL/PF 2 MG/2 ML VIAL. ONE; -MORPHINE SULFATE 2 MG/ML VIAL. IV PRN; +OMEP20CA16 PO; -OMEP20CA9 PO; -ONDANSETRON PF 4 MG/2 ML VIAL. IV PRN; -ONDANSETRON PF 4 MG/2 ML VIAL. ONE; -PHENYLEPHRINE 10 MG/ML VIAL. ONE; -PROCHLORPERAZINE 10 MG/2 ML VIAL. IV PRN; -PROPOFOL 20 ML IV ONE; -PROPOFOL 50 ML IV ONE; -REMIFENTANIL 1 MG VIAL. IV ONE; -REMIFENTANIL 2 MG VIAL. IV ONE; -ROCURONIUM 50 MG/5 ML VIAL. ONE; -THROMBIN TOPICAL 20,000 UNIT SPRAY.SYRN KIT TP ONE; -ePHEDrine PF IN SALINE 50 MG/5 ML DISP.SYRIN IV ONE; -fentaNYL PF VIAL 100 MCG/2 ML VIAL IV PRN; -fentaNYL PF VIAL 100 MCG/2 ML VIAL ONE; +methylPREDNISolone ACETATE 40 MG/ML VIAL. ONE; +methylPREDNISolone ACETATE 80 MG/ML VIAL. ONE
--- NOTE | 2020-01-19 09:51 | PDOC ---
Progress Note - Pain Clinic Date of Service: DOS: DATE: 01/19/20 TIME: 09:47 Diagnosis: Dx: Lumbar radiculopathy with lumbar degenerative disc disease lumbar postlaminectomy syndrome History or Present Illness: HPI: 64-year-old male returns follow-up status post lumbar epidural steroid injections last August 2017 patient did very well he since had surgery in February 2018 for decompressive laminectomy laminotomies L4-5 and L5-S1. Patient reports he did well after the surgery and the numbness in his leg is gone in his foot bu t he still has significant pain in the low back and left lower extremity. Patient reports over the past year and 1/2 to 2 years pain is been getting more noticeable over the past few months is become more difficult for him to do any exercising or any type of walking or standing changing positions. Patient reports pain in the low back and leg posterior gluteus on the left rating the posterior thigh posterior calf as well as the ankle some on the right side in the anterior lateral thigh but mostly on the left patient reports is worse with walking standing standing from sitting position change positions as well as awaken him from sleep often but not every night patient reports the pain is aching and tight burning becoming more radiating with activity patient reports the pain is a 6 to a 7 on a scale of 10 is worse over the past week 5 on average to its least is a 5 today. Patient reports no new motor or sensory deficits no new bowel or bladder con's or other complaints. Physical Exam: VS: Blood pressure is 159/88 pulse 68 respirations are 20 temperature 90.1 F height is 5 feet 9 inches weight is 2 5 6 pounds PE: PHYSICAL EXAMINATION: GENERAL: The patient is awake, alert, oriented, appropriate, very pleasant demeanor HEENT: Shows normocephalic, atraumatic. Extraocular movements are intact and symmetrical. Oral cavity: Mucous membranes moist and pink. Dentition is intact. NECK: Shows anterior throat supple without palpable lymphadenopathy noted. Swallow reflex symmetrical. CHEST: Shows normal on inspection. Breath sounds are clear bilaterally, no rales rhonchi or wheezes auscultated. HEART: Shows S1, S2 clear. No murmurs auscultated. ABDOMEN: Soft, nontender, nondistended, obese. No palpable organomegaly is noted. No rebound or guarding demonstrated. BACK: Shows spine grossly in the midline. Normal-appearing cervical lordotic curvature. There is slightly increased thoracic kyphosis, some minor flattening of the lumbar lordotic curvature. Lumbar paraspinous muscles show symmetrical on inspection, on palpation shows some moderate tenderness diffusely throughout the upper, middle and lower distribution of the paraspinous muscles bilaterally and also into the lower thoracic paraspinous musculature, firm and tender, but without specific trigger points, without radiation of pain. The patient has good rotational motion of the lumbar spine, both laterally as well as extension and flexion without significant difficulty. No tenderness over the spinous processes, sacrum or sacroiliac regions. EXTREMITIES: Lower extremities show deep tendon reflexes 2+ in the patellar and tendo calcaneus tendons. Motor exam is 5 on a scale of 5 with right dorsiflexion, extension, quadriceps and hamstring flexion and 5/5 on the left. Peripheral pulses are 1+ posterior tibial. No peripheral edema is noted bilaterally. Lower extremities are warm and dry to touch, equal in color and appearance. Straight leg raise noted to be negative on the right, left side is negative as well. Gaenslen's and Mete's maneuvers are negative as well. The patient is able to stand, stand on his toes without significant difficulty walks with a normal-appearing gait denies any assistive device to ambulate.. SKIN: Shows warm and dry, good turgor. No edema. No sores, rashes or bruising throughout. Procedure: Procedure: Options were discussed with the patient. Patient will chart reviewed his current medication regimen updated current review of systems updated today as well. We will proceed with a lumbar epidural surgery today with fluoroscopic guidance risks again discussed including but not limited to bleeding infection possibility of epidural hematoma subsequent neurological compromise dural puncture headache spinal cord and or nerve damage side effects of steroid medication and portals regarding pain control. Patient understands wished to proceed. Patient return to clinic in approximate 2 weeks for follow-up with counselors return appointment activity level and side effects to be aware of. Medication Injected: Med Injected: Procedure is lumbar epidural steroid injection under local anesthetic using sterile prep and drape at the L5-S1 level using C-arm fluoroscopic guidance in both AP and lateral views medications injected is 120 mg Depo-Medrol + 10 mL preservative-free normal saline and 2 mL contrast- condition at discharge is stable patient tolerated procedure well had no complications. Condition at Discharge: Condition at Discharge: Condition at discharge stable patient tolerated procedure well had no complications. LENA WESLEY MD Jan 19, 2020 09:51
== END | disposition home or self-care (01) ==
LOC: PNCL 08:42
PROVIDERS: ATTEND Anesthesiology
DX: M51.16 Intervertebral disc disorders with radiculopathy, lumbar region (principal); M96.1 Postlaminectomy syndrome, not elsewhere classified; I10 Essential (primary) hypertension; E11.9 Type 2 diabetes mellitus without complications; Z79.899 Other long term (current) drug therapy
CPT/HCPCS: 62323; J1030; J1040; Q9965

== ENCOUNTER → 2020-02-02 | Outpatient (CLI) | payer OTHER ==
[2018-03-17 17:02] VITALS: BP 147/67
--- NOTE | 2020-02-02 09:23 | PDOC ---
Progress Note - Pain Clinic Date of Service: DOS: DATE: 02/02/20 TIME: : Diagnosis: Dx: Lumbar radiculopathy with lumbar degenerative disc disease and lumbar postlaminectomy syndrome History or Present Illness: HPI: 64-year-old male returns follow-up status post lumbar epidurals injection x1. Patient reports about 90% improvement overall his leg doing much better with the left side but the back is still having some significant pain. Patient reports the leg is doing much. Increase his distance walking greater distances with work activities household activities and sleeping better at night. Patient reports still some pain in the low back more the left side with left leg is doing significantly better. Patient claims of pain in the back is aching and dull on and off in intensity worse with walking standing changing positions better with sitting or laying down. Patient reports is a 5-6 on a scale of 10 is worse over the past week 3-4 and average to its least is a 3 today. Patient reports no new motor or sensory deficits no new bowel or bladder complaints. Physical Exam: VS: Pressure 152/90 pulse 67 respirations 16 temperature 98.5 F weight is 258 pounds PE: PHYSICAL EXAMINATION: GENERAL: The patient is awake, alert, oriented, appropriate, very pleasant demeanor HEENT: Shows normocephalic, atraumatic. Extraocular movements are intact and symmetrical. Oral cavity: Mucous membranes moist and pink. NECK: Shows anterior throat supple without palpable lymphadenopathy noted. Swallow reflex symmetrical. CHEST: Shows normal on inspection. Breath sounds are clear bilaterally. HEART: Shows S1, S2 clear. No murmurs auscultated. ABDOMEN: Soft, nontender, nondistended. No palpable organomegaly is noted. No rebound or guarding demonstrated. BACK: Shows spine grossly in the midline. Normal-appearing cervical lordotic curvature. There is slightly increased thoracic kyphosis, some minor flattening of the lumbar lordotic curvature. Lumbar paraspinous muscles show symmetrical on inspection, on palpation shows some moderate tenderness diffusely throughout the upper, middle and lower distribution of the paraspinous muscles bilaterally, but without specific trigger points, without radiation of pain. The patient has good rotational motion of the lumbar spine, both laterally as well as extension and flexion without significant difficulty. No tenderness over the spinous processes, sacrum or sacroiliac regions. EXTREMITIES: Lower extremities show deep tendon reflexes 2+ in the patellar and tendo calcaneus tendons. Motor exam is 5 on a scale of 5 with right dorsiflexion, extension, quadriceps and hamstring flexion and 5/5 on the left. Peripheral pulses are 1+ posterior tibial. No peripheral edema is noted bilaterally. Lower extremities are warm and dry to touch, equal in color and appearance. SKIN: Shows warm and dry, good turgor. No edema. No sores, rashes or bruising throughout. Procedure: Procedure: Options were discussed with the patient. Patient will chart reviewed his current medication regimen updated current review of systems updated today as well. We will proceed with a second in the series lumbar epidural steroid injection today with fluoroscopic guidance. Risks were discussed including but not limited to: Bleeding, infection, possibility of epidural hematoma and subsequent neurological compromise, dural puncture, headaches, spinal cord and/or nerve damage, side effects of steroid medication, and poor results regarding pain control. Patient understands wished to proceed. Patient return to clinic in possibly 2 weeks for follow-up was counseled as to return a ppointment activity level and side effects to be aware of. Medication Injected: Med Injected: Procedure is lumbar epidural steroid injection under local anesthetic using sterile prep and drape at the L5-S1 level using C-arm fluoroscopic guidance in both AP and lateral views medications injected is 120 mg Depo-Medrol + 10 mL preservative-free normal saline and 2 mL contrast- condition at discharge is stable patient tolerated procedure well had no complications. Condition at Discharge: Condition at Discharge: Condition at discharge stable patient tolerated procedure well had no complications. LENA WESLEY MD Feb 02, 2020 09:23
== END | disposition home or self-care (01) ==
LOC: PNCL 08:37
PROVIDERS: ATTEND Anesthesiology
DX: M51.16 Intervertebral disc disorders with radiculopathy, lumbar region (principal); M96.1 Postlaminectomy syndrome, not elsewhere classified; I10 Essential (primary) hypertension; E11.9 Type 2 diabetes mellitus without complications; Z79.899 Other long term (current) drug therapy; Z72.89 Other problems related to lifestyle; Z79.84 Long term (current) use of oral hypoglycemic drugs
CPT/HCPCS: 62323; J1030; J1040; Q9965

== ENCOUNTER → 2020-04-27 | Outpatient (CLI) | payer OTHER ==
[2018-03-17 17:02] VITALS: BP 147/67
--- NOTE | 2020-04-27 08:24 | PDOC ---
Progress Note - Pain Clinic Date of Service: DOS: DATE: 04/27/20 TIME: 08:22 Diagnosis: Dx: Lumbar radiculopathy with lumbar degenerative disc disease and lumbar postlaminectomy syndrome History or Present Illness: HPI: 64-year-old male returns follow-up status post lumbar epidural steroid action x2. Patient reports about 75% improvement for the first 2 months following the last injection. Patient reports pain returning now in the low back and bilateral lower extremities somewhat worse on the left than the right but pres ent bilaterally posterior gluteus posterior thighs posterior calves patient reports is a 7 on scale 10 is worse over the past week 5-6 on average 3 to 4 days least and is a 5 today patient ports aching tight burning in her low back some shooting pain in the lower extremities well but off-and-on intensity patient ports better with sitting or laying down does not awaken from sleep at night he is increase his distance walking doing work activities as well as household activities with greater ease and comfort as well as traveling with greater ease. Patient reports no new motor or sensory deficits no new bowel or bladder incontinence or other complaints. Physical Exam: VS: Blood pressure is 133/87 pulse 67 respirations 16 temperature 98.6 F weight is 255 pound PE: PHYSICAL EXAMINATION: GENERAL: The patient is awake, alert, oriented, appropriate, very pleasant demeanor HEENT: Shows normocephalic, atraumatic. Extraocular movements are intact and symmetrical. Oral cavity: Mucous membranes moist and pink. NECK: Shows anterior throat supple without palpable lymphadenopathy noted. Sw allow reflex symmetrical. CHEST: Shows normal on inspection. Breath sounds are clear bilaterally. HEART: Shows S1, S2 clear. No murmurs auscultated. ABDOMEN: Soft, nontender, nondistended, obese. No palpable organomegaly is noted. No rebound or guarding demonstrated. BACK: Shows spine grossly in the midline. Normal-appearing cervical lordotic curvature. There is slightly increased thoracic kyphosis, some minor flattening of the lumbar lordotic curvature. Lumbar paraspinous muscles show symmetrical on inspection, on palpation shows some moderate tenderness diffusely throughout the upper, middle and lower distribution of the paraspinous muscles bilaterally, but without specific trigger points, without radiation of pain. The patient has good rotational motion of the lumbar spine, both laterally as well as extension and flexion without significant difficulty. No tenderness over the spinous processes, sacrum or sacroiliac regions. EXTREMITIES: Lower extremities show deep tendon reflexes 2+ in the patellar and tendo calcaneus tendons. Motor exam is 5 on a scale of 5 with right dorsiflexion, extension, quadriceps and hamstring flexion and 5/5 on the left. Peripheral pulses are 1+ posterior tibial. No peripheral edema is noted bilaterally. Lower extremities are warm and dry to touch, equal in color and appearance. SKIN: Shows warm and dry, good turgor. No edema. No sores, rashes or bruising throughout. Procedure: Procedure: Options were discussed with the patient. Patient's old chart was reviewed his his current medication regimen updated current review of systems updated today as well. We will proceed with a third in the series lumbar epidural steroid injection today with fluoroscopic guidance. Risks were discussed including but not limited to: Bleeding, infection, possibility of epidural hematoma and subsequent neurological compromise, dural puncture, headaches, spinal cord and/or nerve damage, side effects of steroid medication, and poor results regarding pain control. Patient understands wished to proceed. Patient will return to clinic in approximate 2 weeks for follow-up was counseled as return appointment activity level and side effects to be aware of. Medication Injected: Med Injected: Procedure is lumbar epidural steroid injection under local anesthetic using sterile prep and drape at the L5-S1 level using C-arm fluoroscopic guidance in both AP and lateral views medications injected is 120 mg Depo-Medrol + 10 mL preservative-free normal saline and 2 mL contrast- condition at discharge is stable patient tolerated procedure well had no complications. Condition at Discharge: Condition at Discharge: Condition at discharge is stable, patient tolerated procedure well and had no complications. LENA WESLEY MD Apr 27, 2020 08:24
== END | disposition home or self-care (01) ==
LOC: PNCL 07:35
PROVIDERS: ATTEND Anesthesiology
DX: M51.16 Intervertebral disc disorders with radiculopathy, lumbar region (principal); M96.1 Postlaminectomy syndrome, not elsewhere classified; I10 Essential (primary) hypertension; E03.9 Hypothyroidism, unspecified; K21.9 Gastro-esophageal reflux disease without esophagitis; G47.30 Sleep apnea, unspecified; Z98.890 Other specified postprocedural states; Z79.82 Long term (current) use of aspirin; Z79.899 Other long term (current) drug therapy; Z87.891 Personal history of nicotine dependence; Z72.89 Other problems related to lifestyle
CPT/HCPCS: 62323; J1030; J1040; Q9965